=== PATIENT | female | born 1965 | race Hispanic/Latino ===

== ENCOUNTER 2018-11-28 12:52 | Inpatient (IN) | payer BC, OTHER ==
[~2018-11-28] VITALS: Ht 152.4 cm; Wt 113.4 kg
[~2018-11-28 12:52] MED LIST: INSU100I21 SQ; METF-444 PO; SULF1TAB42 PO
[2018-11-28 13:25] LABS: BASOPHILS % (AUTO) 0.3 % (0.0-5.0); EOSINOPHILS % (AUTO) 0.2 % (0.0-8.0); HEMATOCRIT 39.8 % (36-48); LYMPHOCYTES % (AUTO) 7.1 % (21.0-51.0); MEAN CORPUSCULAR HEMOGLOBIN 32.8 pg (27.0-33.0); MEAN CORPUSCULAR HGB CONC 34.7 g/dL (32.0-36.0); MEAN CORPUSCULAR VOLUME 94.7 fL (79-99); MONOCYTES % (AUTO) 7.4 % (3.0-13.0); PLATELET COUNT (AUTO) 62 K/uL (130-400); RED CELL DISTRIBUTION WIDTH 13.9 % (11.0-15.5); WHITE BLOOD COUNT (AUTO) 13.2 K/uL (4.8-10.8)
[2018-11-28 13:26] LABS: CREATININE 1.3 mg/dL (0.5-1.5); POTASSIUM 4.7 mmol/L (3.5-5.1)
[2018-11-28] MEDS ORDERED: SODIUM CHLORIDE 0.9% 1000ML 1,000 ML IV ONE ×3 (13:30→17:19)
[2018-11-28 13:31] LABS: ALBUMIN 2.2 g/dL (3.5-5.0); BILIRUBIN,TOTAL 4.5 mg/dL (0.2-1.0); TOTAL PROTEIN, SERUM 6.6 g/dL (6.0-8.3)
[2018-11-28 13:36] LABS: CREATINE KINASE, TOTAL 80 U/L (21-232); MYOGLOBIN 56 ng/mL (10-92); TROPONIN I < 0.04 ng/mL (0.00-0.06)
[2018-11-28] MEDS ORDERED: ONDANSETRON HCL 4 MG/2 ML VIAL ONE (13:36)
[2018-11-28 14:34] LABS: APPEARANCE,URINE SL CLOUDY (CLEAR); BILIRUBIN,URINE MODERATE (NEGATIVE); GLUCOSE, URINE (UA) NEGATIVE (NEGATIVE); KETONES,URINE 5 mg/dL (NEGATIVE); LEUKOCYTE ESTERASE ,URINE TRACE (NEGATIVE); NITRATE,URINE POSITIVE (NEGATIVE); OCCULT BLOOD,URINE TRACE-LYSED (NEGATIVE); PH,URINE 5.5 (5.0-8.0); PROTEIN,URINE 30 mg/dL (NEGATIVE)
[2018-11-28 14:36] LABS: COLOR,URINE ORANGE (YELLOW)
[2018-11-28 14:38] LABS: HCG,QUAL RESULT NEGATIVE (NEGATIVE)
[2018-11-28 14:46] LABS: BACTERIA,URINE Many /HPF (None Seen); RBC,URINE 0-1 /HPF (0-1)
[2018-11-28 14:49] LABS: AMPHET/METH SCREEN,URINE NEGATIVE (NEGATIVE); BARBITURATE SCREEN, URINE NEGATIVE (NEGATIVE); BENZODIAZEPINES SCREEN,URINE NEGATIVE (NEGATIVE); CANNABINOID SCREEN,URINE NEGATIVE (NEGATIVE); COCAINE SCREEN,URINE NEGATIVE (NEGATIVE); OPIATE SCREEN,URINE NEGATIVE (NEGATIVE); PHENCYCLIDINE SCREEN,URINE NEGATIVE (NEGATIVE)
[2018-11-28 15:10] LABS: INR 1.18 (0.85-1.15); PARTIAL THROMBOPLASTIN TIME 29.1 SEC (26.3-35.5); PROTHROMBIN TIME 12.4 SEC (9.6-11.6)
[2018-11-28] MEDS ORDERED: LEVOFLOXACIN 750 MG/D5W 150 ML 150 ML ONE (15:13)
[2018-11-28] MEDS ORDERED: SODIUM CHLORIDE 0.9% 1000ML 1,000 ML IV SCH (16:27)
[2018-11-28] MEDS ORDERED: ONDANSETRON HCL 4 MG/2 ML VIAL IV PRN (16:30)
[2018-11-28] MEDS ORDERED: HYDRALAZINE HCL 20 MG/ML VIAL IV PRN (16:30)
[2018-11-28] MEDS ORDERED: MORPHINE SULFATE 4 MG/1ML SYG IV PRN (16:30)
[2018-11-28] MEDS ORDERED: ACETAMINOPHEN 325 MG TAB PO PRN ×2 (16:30)
[2018-11-28] MEDS: LACTULOSE 20 GM/30 ML UDCUP PO SCH ×2 (16:30→20:40)
[2018-11-28] MEDS ORDERED: MORPHINE SULFATE 2 MG/ML 1ML SYG IV PRN (16:30)
[2018-11-28] MEDS ORDERED: LACTULOSE 20 GM/30 ML UDCUP ONE ×2 (16:45→16:47)
[2018-11-28] MEDS ORDERED: METOPROLOL TARTRATE 25 MG TAB ONE (17:10)
[2018-11-28 18:10] VITALS: BP 129/86
[2018-11-28 20:02] VITALS: BP 141/79
--- NOTE | 2018-11-28 20:29 | NUR ---
REWIND OPERATOR AJ, REWIND OPERATOR SENIOR JAVA PROGRAMMER ANALYST FOR HOSPITALIST, ON THE FLOOR. REFERRED PT'S IVF RATE. NEW ORDERS GIVEN, PLEASE REFER TO CPOE. WILL ADJUST IVF RATE FROM 150 TO 75 CC/HR.
[2018-11-28] MEDS: FAMOTIDINE/PF 20 MG/2 ML VIAL IV SCH (20:40)
[2018-11-28] MEDS: ZOSYN 3.375GM+NS 50ML 50 ML IV SCH (20:40)
[2018-11-28] MEDS: RIFAXIMIN 550 MG TABLET PO SCH (20:40)
[2018-11-28] MEDS: METOPROLOL TARTRATE 25 MG TAB PO SCH (20:40)
--- NOTE | 2018-11-28 20:40 | NUR ---
MEDS SHIFT ASSESSMENT DONE, PLEASE REFER TO CHART. PT VERY LETHARGIC BUT ABLE TO AWAKEN ENOUGH TO TAKE MEDS. VERY UNCOOPERATIVE AT THIS TIME, VERY CONFUSED WELL. PT IS TRYING TO PULL ON HER LINES. DUE MEDS ADMINISTERED, TOLERATED WELL. PCP IN AND MITTENS PLACED ON BOTH HANDS. PT'S DAUGHTER IS STAYING THE NIGHT TO WATCH PT. WILL MONITOR CLOSELY. Addendum: 11/29/18 at 0113 by JESSICA HERNANDEZ RN RN Amended: Links added.
[2018-11-28] MEDS: INSULIN GLARGINE 100 UNITS/ML 10 ML VIAL SQ SCH (20:55)
[2018-11-28] MEDS ORDERED: INSULIN HUMULIN R 100 UNIT/ML 3ML SQ SCH (21:00)
--- NOTE | 2018-11-28 21:50 | NUR ---
LAB LACTIC ACID RESULTS=1.7. AUBREE, CLEANING SPECIALIST TRAFFIC ANALYST FOR THE NIGHT, MADE AWARE. ORDER TO D/C IVF RECEIVED. WILL D/C IVF AT THIS TIME.
--- NOTE | 2018-11-28 23:34 | NUR ---
CONSULT DR DELGADO IN TO SEE PT BUT PT IS BEING CHANGED AT THIS TIME. INFORMED MD OF PT'S AMS AND MD ALREADY AWARE OF LABS AND IMAGING RESULTS. MD STATED HE WILL SEE PT IN AM AND NEW ORDERS GIVEN, PLEASE REFER TO CPOE.
[2018-11-28 23:46] VITALS: BP 127/45
--- NOTE | 2018-11-29 02:10 | NUR ---
ROUNDS PT IS MORE COHERENT WHEN SPOKEN TO. MORE CALM AT THIS TIME. KEPT COMFORTABLE IN BED. WILL MONITOR CLOSELY WITH FAMILY AT BEDSIDE.
[2018-11-29] MEDS: ZOSYN 3.375GM+NS 50ML 50 ML IV SCH ×3 (03:57→22:00)
[2018-11-29 04:27] VITALS: BP 139/75
[2018-11-29 04:52] LABS: BASOPHILS % (AUTO) 0.5 % (0.0-5.0); EOSINOPHILS % (AUTO) 0.3 % (0.0-8.0); HEMATOCRIT 33.3 % (36-48); LYMPHOCYTES % (AUTO) 7.7 % (21.0-51.0); MEAN CORPUSCULAR HEMOGLOBIN 33.3 pg (27.0-33.0); MEAN CORPUSCULAR HGB CONC 35.1 g/dL (32.0-36.0); MEAN CORPUSCULAR VOLUME 94.8 fL (79-99); NEUTROPHILS % (AUTO) 81.5 % (40.0-77.0); PLATELET COUNT (AUTO) 38 K/uL (130-400); RED BLOOD CELL COUNT(AUTO) 3.51 MIL/uL (4.00-5.50); WHITE BLOOD COUNT (AUTO) 11.3 K/uL (4.8-10.8)
[2018-11-29 05:02] LABS: INR 1.32 (0.85-1.15); PARTIAL THROMBOPLASTIN TIME 32.2 SEC (26.3-35.5); PROTHROMBIN TIME 13.8 SEC (9.6-11.6)
[2018-11-29 05:07] LABS: ALBUMIN 1.9 g/dL (3.5-5.0); BILIRUBIN,TOTAL 5.4 mg/dL (0.2-1.0); CREATININE 1.8 mg/dL (0.5-1.5); POTASSIUM 4.2 mmol/L (3.5-5.1); TOTAL PROTEIN, SERUM 5.9 g/dL (6.0-8.3)
[2018-11-29 05:08] LABS: % IRON SATURATION 95.5 % (22-44)
[2018-11-29] MEDS: INSULIN HUMULIN R 100 UNIT/ML 3ML SQ SCH ×3 (06:25→18:52)
--- NOTE | 2018-11-29 06:25 | NUR ---
MEDS AWAKENED PT, AND AWAKENS WITH JUST VERBAL COMMAND. PT IS COHERENT WHEN TALKED TO AT THIS TIME. DUE INSULIN DOSE ADMINISTERED. KEPT NPO FOR NOW. KEPT COMFORTABLE IN BED. FAMILY VERBALIZES THAT SOMEBODY WILL STAY WITH PT TODAY. FOR MORE CARE AND MANAGEMENT.
[2018-11-29 08:00] VITALS: BP 148/86
[2018-11-29] MEDS: RIFAXIMIN 550 MG TABLET PO SCH ×2 (09:00→22:00)
[2018-11-29] MEDS: LACTULOSE 20 GM/30 ML UDCUP PO SCH ×3 (09:00→22:01)
[2018-11-29] MEDS: METOPROLOL TARTRATE 25 MG TAB PO SCH ×2 (09:00→22:01)
[2018-11-29] MEDS: FAMOTIDINE/PF 20 MG/2 ML VIAL IV SCH ×2 (09:15→22:00)
[2018-11-29 12:20] VITALS: BP 121/66
--- NOTE | 2018-11-29 14:44 | NUR ---
REPORT BACK FROM JOELLE PENNINGTON, DR. CARRASCO PAGED
[2018-11-29 16:00] VITALS: BP 144/79
--- NOTE | 2018-11-29 16:28 | NUR ---
PAGED DR. CARRASCO SPOKE WITH LELAND
--- NOTE | 2018-11-29 17:57 | NUR ---
Diet Education HAILY provided Cirrhosis and Nutrition Diet Education to Pt and Family via Polish Translation. HAILY reviewed reference materials with Pt and daughter. Pt and with questions. RD answered all questions. Pt and family verbalized understanding. HAILY encouraged Pt to notify as questions or concerns arise. Addendum: 11/29/18 at [address] Amended: Links added.
--- NOTE | 2018-11-29 19:07 | NUR ---
VELEZ D/C AT [address] DEFLATED PRIOR W 10 CC OF WATER
[2018-11-29 19:41] VITALS: BP 144/71
--- NOTE | 2018-11-29 20:45 | NUR ---
Paged Dr. Merchant as patient and family upset patient continues NPO and state surgeon has not seen patient since admission. Pending call back.
[2018-11-29] MEDS: INSULIN GLARGINE 100 UNITS/ML 10 ML VIAL SQ SCH (21:58)
[2018-11-30] VITALS (7 sets, daily range): BP systolic 137–163; BP diastolic 67–82
[2018-11-30] MEDS: INSULIN HUMULIN R 100 UNIT/ML 3ML SQ SCH ×4 (00:54→20:15)
[2018-11-30 04:15] LABS: BASOPHILS % (AUTO) 0.5 % (0.0-5.0); EOSINOPHILS % (AUTO) 0.4 % (0.0-8.0); HEMATOCRIT 32.4 % (36-48); LYMPHOCYTES % (AUTO) 7.3 % (21.0-51.0); MEAN CORPUSCULAR HGB CONC 35.4 g/dL (32.0-36.0); MONOCYTES % (AUTO) 11.7 % (3.0-13.0); NEUTROPHILS % (AUTO) 80.1 % (40.0-77.0); NUCLEATED RED BLOOD CELLS 0.1 % (0.0-0.19); PLATELET COUNT (AUTO) 22 K/uL (130-400); RED BLOOD CELL COUNT(AUTO) 3.38 MIL/uL (4.00-5.50); RED CELL DISTRIBUTION WIDTH 14.4 % (11.0-15.5); WHITE BLOOD COUNT (AUTO) 10.8 K/uL (4.8-10.8)
[2018-11-30 04:25] LABS: CREATININE 2.6 mg/dL (0.5-1.5); POTASSIUM 4.4 mmol/L (3.5-5.1)
[2018-11-30] MEDS: ZOSYN 3.375GM+NS 50ML 50 ML IV SCH (05:42)
--- NOTE | 2018-11-30 08:00 | NUR ---
PATIENT/FAMILY COMPLAINT PATIENTS DAUGHTER, NICKY, VERBALIZED THAT SHE WAS UPSET BECAUSE "NO DOCTOR HAS COME TALK TO MY MOM ABOUT WHAT IS GOING ON. DR. CALL TALKED TO US IN THE ER, BUT NO OTHER DOCTOR HAS SEEN MY MOM [PATIENT] SINCE THEN." PATIENT ALSO STATES "I JUST WANT TO KNOW WHEN I CAN DRINK, I AM VERY THIRSTY." I INFORMED Dinora RENTERIA NP FOR HOSPITALIST OF PATIENT/FAMILY COMPLAINTS. Dinora RENTERIA NP FOR HOSPITALIST VISITED WITH PATIENT AND FAMILY AND EXPLAINED PLAN OF CARE. I ALSO INFORMED Dinora RENTERIA NP THAT PATIENT HAS BEEN "NPO EXCEPT MEDS" AND NO IV FLUIDS. Dinora RENTERIA NP REPLIED SHE WOULD PLACE ORDERS TO START PATIENT ON DIET.
[2018-11-30 08:12] LABS: HEPATITIS A ANTIBODY IGM Negative (Negative); HEPATITIS B CORE IGM Negative (Negative); HEPATITIS Bs ANTIGEN SCREEN P Negative (Negative)
--- NOTE | 2018-11-30 08:15 | NUR ---
Dinora RENTERIA NP INFORMED Dinora RENTERIA NP FOR HOSPITALIST OF PATIENTS BUN/CREATING LEVELS TRENDING UPWARDS. Dinora RENTERIA NP REPLIED SHE WOULD PLACE ORDERS TO CONSULT WITH NEPHROLOGY. Dinora RENTERIA NP ALSO AWARE THAT PLATELET LEVEL 22.
--- NOTE | 2018-11-30 09:15 | NUR ---
DR. LEONARDO DESHPANDE MD REGARDING CALLBACK. DID CALL ME BACK AND STATED THAT SHE IS GOING OUT OF TOWN TODAY AND DR. MOODY WILL BE COVERING FOR HER PATIENTS.
--- NOTE | 2018-11-30 09:20 | NUR ---
DR. MOODY PAGED DR. MOODY'S OFFICE REGARDING CONSULT. AWAITING CALLBACK.
[2018-11-30] MEDS: METOPROLOL TARTRATE 25 MG TAB PO SCH ×2 (10:43→19:54)
[2018-11-30] MEDS: RIFAXIMIN 550 MG TABLET PO SCH ×2 (10:43→19:54)
[2018-11-30] MEDS: LACTULOSE 20 GM/30 ML UDCUP PO SCH ×3 (10:46→21:50)
[2018-11-30] MEDS: FAMOTIDINE/PF 20 MG/2 ML VIAL IV SCH ×2 (10:48→19:54)
--- NOTE | 2018-11-30 11:00 | NUR ---
INITIAL Met w pt and friend at bedside- pt sleepy /weak but able to answer all CM questions, Pt lives w adult children, is employed as a provider, is indp, no dme; Daughter Fabi will proivde transport home . New diagnosis of liver failure/cirrhosis. Jose Angel Mejia is her PMD just saw 2 wks ago. Asked if she will told she can no long drink any alcohol.. responded was told. DCP is home, CM to follow. Addendum: 12/03/18 at 0858 by TAZ KRISHNAMURTHY RN CM Amended: Links added.
[2018-11-30] MEDS ORDERED: INSULIN HUMULIN R 100 UNIT/ML 3ML SQ SCH (11:30)
[2018-11-30] MEDS: LEVOFLOXACIN 250 MG/D5W 50ML 50 ML IV SCH (13:05)
[2018-11-30] MEDS: SODIUM CHLORIDE 0.9% 1000ML 1,000 ML IV SCH (13:08)
--- NOTE | 2018-11-30 15:30 | NUR ---
DR. CARRASCO MD HERE TO SEE PATIENT. STATES THAT NO SURGICAL INTERVENTION INDICATED AT THIS TIME. DR. CARRASCO SPOKE TO PATIENT AND DAUGHTER AND EXPLAINED HIDA SCAN RESULTS WERE NO NORMAL AND NO NEED FOR SURGICAL INTERVENTION. MD ALSO GAVE ORDER TO ADVANCE PATIENTS DIET TOLERATED.
--- NOTE | 2018-11-30 17:00 | NUR ---
ELEVATED BLOOD GLUCOSE INFORMED CRYSTAL RICO THAT PATIENT BLOOD SUGAR HAVE BEEN CONSECUTIVELY ABOVE 350 FOR LAST 2 BLOOD SUGAR CHECKS. PATIENT PLACED ON SS2.
[2018-11-30] MEDS ORDERED: INSULIN LISPRO 100 UNIT/ML 3ML SQ SCH (17:15)
[2018-11-30] MEDS: INSULIN GLARGINE 100 UNITS/ML 10 ML VIAL SQ SCH (20:03)
[2018-12-01 04:00] VITALS: BP 115/59
[2018-12-01 04:31] LABS: BASOPHILS % (AUTO) 0.4 % (0.0-5.0); EOSINOPHILS % (AUTO) 1.4 % (0.0-8.0); HEMATOCRIT 26.7 % (36-48); LYMPHOCYTES % (AUTO) 7.9 % (21.0-51.0); MEAN CORPUSCULAR HEMOGLOBIN 33.8 pg (27.0-33.0); MEAN CORPUSCULAR HGB CONC 35.6 g/dL (32.0-36.0); MEAN CORPUSCULAR VOLUME 94.8 fL (79-99); MONOCYTES % (AUTO) 13.3 % (3.0-13.0); NUCLEATED RED BLOOD CELLS 0.1 % (0.0-0.19); RED BLOOD CELL COUNT(AUTO) 2.81 MIL/uL (4.00-5.50); RED CELL DISTRIBUTION WIDTH 14.4 % (11.0-15.5); WHITE BLOOD COUNT (AUTO) 10.1 K/uL (4.8-10.8)
[2018-12-01 04:42] LABS: ALBUMIN 1.9 g/dL (3.5-5.0); BILIRUBIN,TOTAL 5.8 mg/dL (0.2-1.0); POTASSIUM 3.8 mmol/L (3.5-5.1); TOTAL PROTEIN, SERUM 6.2 g/dL (6.0-8.3)
[2018-12-01 05:05] LABS: PLATELET COUNT (AUTO) 24 K/uL (130-400)
[2018-12-01] MEDS: SODIUM CHLORIDE 0.9% 1000ML 1,000 ML IV SCH (06:44)
[2018-12-01] MEDS: INSULIN HUMULIN R 100 UNIT/ML 3ML SQ SCH ×4 (07:17→21:31)
[2018-12-01 08:00] VITALS: BP 124/66
[2018-12-01] MEDS: FAMOTIDINE/PF 20 MG/2 ML VIAL IV SCH ×2 (08:28→21:19)
[2018-12-01] MEDS: METOPROLOL TARTRATE 25 MG TAB PO SCH ×2 (08:29→21:19)
[2018-12-01] MEDS: LACTULOSE 20 GM/30 ML UDCUP PO SCH ×3 (08:29→21:19)
[2018-12-01] MEDS: RIFAXIMIN 550 MG TABLET PO SCH ×2 (08:29→21:19)
[2018-12-01 11:16] VITALS: BP 131/73
[2018-12-01] MEDS: LEVOFLOXACIN 250 MG/D5W 50ML 50 ML IV SCH (11:16)
[2018-12-01 16:12] VITALS: BP 136/68
[2018-12-01 19:26] VITALS: BP 127/67
[2018-12-01] MEDS: INSULIN GLARGINE 100 UNITS/ML 10 ML VIAL SQ SCH (21:36)
[2018-12-01 23:35] VITALS: BP 114/56
[2018-12-02 04:00] VITALS: BP 103/59
[2018-12-02 05:05] LABS: BASOPHILS % (AUTO) 0.5 % (0.0-5.0); EOSINOPHILS % (AUTO) 2.2 % (0.0-8.0); HEMATOCRIT 22.2 % (36-48); LYMPHOCYTES % (AUTO) 15.4 % (21.0-51.0); MEAN CORPUSCULAR HEMOGLOBIN 34.2 pg (27.0-33.0); MEAN CORPUSCULAR HGB CONC 35.7 g/dL (32.0-36.0); MEAN CORPUSCULAR VOLUME 95.8 fL (79-99); MONOCYTES % (AUTO) 11.7 % (3.0-13.0); NEUTROPHILS % (AUTO) 70.2 % (40.0-77.0); NUCLEATED RED BLOOD CELLS 0.3 % (0.0-0.19); PLATELET COUNT (AUTO) 12 K/uL (130-400); RED BLOOD CELL COUNT(AUTO) 2.32 MIL/uL (4.00-5.50); RED CELL DISTRIBUTION WIDTH 14.8 % (11.0-15.5); WHITE BLOOD COUNT (AUTO) 8.1 K/uL (4.8-10.8)
[2018-12-02 05:15] LABS: ALBUMIN 1.7 g/dL (3.5-5.0); PHOSPHORUS 5.2 mg/dL (2.5-4.9); POTASSIUM 3.5 mmol/L (3.5-5.1)
[2018-12-02] MEDS: INSULIN HUMULIN R 100 UNIT/ML 3ML SQ SCH ×4 (06:31→21:00)
[2018-12-02 08:00] VITALS: BP 113/65
[2018-12-02] MEDS: LACTULOSE 20 GM/30 ML UDCUP PO SCH ×3 (08:49→20:59)
[2018-12-02] MEDS: RIFAXIMIN 550 MG TABLET PO SCH ×2 (08:49→20:58)
[2018-12-02] MEDS: FAMOTIDINE/PF 20 MG/2 ML VIAL IV SCH ×2 (08:49→21:00)
[2018-12-02] MEDS: METOPROLOL TARTRATE 25 MG TAB PO SCH ×2 (08:49→20:58)
[2018-12-02] MEDS: SODIUM CHLORIDE 0.9% 1000ML 1,000 ML IV SCH ×2 (08:50→09:45)
[2018-12-02] MEDS: LEVOFLOXACIN 250 MG/D5W 50ML 50 ML IV SCH (09:59)
[2018-12-02 11:11] VITALS: BP 118/60
[2018-12-02 16:00] VITALS: BP 120/63
[2018-12-02 19:35] VITALS: BP 138/65
[2018-12-02] MEDS: INSULIN GLARGINE 100 UNITS/ML 10 ML VIAL SQ SCH (21:05)
[2018-12-02 23:54] VITALS: BP 105/49
[2018-12-03 04:00] VITALS: BP 112/66
[2018-12-03 05:44] LABS: BASOPHILS % (AUTO) 0.5 % (0.0-5.0); EOSINOPHILS % (AUTO) 1.9 % (0.0-8.0); LYMPHOCYTES % (AUTO) 17.3 % (21.0-51.0); MEAN CORPUSCULAR HEMOGLOBIN 34.3 pg (27.0-33.0); MEAN CORPUSCULAR HGB CONC 35.5 g/dL (32.0-36.0); MEAN CORPUSCULAR VOLUME 96.5 fL (79-99); MONOCYTES % (AUTO) 10.4 % (3.0-13.0); NEUTROPHILS % (AUTO) 69.9 % (40.0-77.0); NUCLEATED RED BLOOD CELLS 0.1 % (0.0-0.19); PLATELET COUNT (AUTO) 13 K/uL (130-400); RED BLOOD CELL COUNT(AUTO) 2.09 MIL/uL (4.00-5.50); WHITE BLOOD COUNT (AUTO) 7.6 K/uL (4.8-10.8)
[2018-12-03 05:49] LABS: HEMATOCRIT 20.1 % (36-48)
[2018-12-03 06:06] LABS: POTASSIUM 3.8 mmol/L (3.5-5.1)
[2018-12-03] MEDS: INSULIN HUMULIN R 100 UNIT/ML 3ML SQ SCH ×4 (06:50→21:33)
[2018-12-03 08:14] VITALS: BP 122/59
[2018-12-03] MEDS: LACTULOSE 20 GM/30 ML UDCUP PO SCH ×3 (09:42→21:37)
[2018-12-03] MEDS: METOPROLOL TARTRATE 25 MG TAB PO SCH ×2 (09:42→21:37)
[2018-12-03] MEDS: RIFAXIMIN 550 MG TABLET PO SCH (09:42)
[2018-12-03] MEDS: FAMOTIDINE/PF 20 MG/2 ML VIAL IV SCH ×2 (09:42→21:37)
[2018-12-03 11:23] VITALS: BP 101/63
--- NOTE | 2018-12-03 13:34 | NUR ---
CASE DISCUSSED INCREASED RENAL FIALURE, NEW LIVER CIRRHOSIS NOW PLTS VERY LOW. POSS HEMATOLIGST CONSULT Addendum: 12/03/18 at 1337 by TAZ KRISHNAMURTHY RN CM Amended: Links added.
--- NOTE | 2018-12-03 14:29 | NUR ---
DEXTER STATED PT, TO TAKE A SPONGE BATH SINCE PTL IS LOW- PT REFUSING SPONGE BATH
--- NOTE | 2018-12-03 15:59 | NUR ---
CALL TO DR. MOODY'S OFFICE T/C PLACED TO DR. MOODY'S OFFICE, GIVEN ANOTHER TEL. NUMBER, CALL MADE TO FELIPA WANT TO KNOW IF DR. MOODY WAS GOING TO MAKE ROUNDS, SAID DR. MOODY WILL ROUND TODAY.
[2018-12-03 16:00] VITALS: BP 126/68
--- NOTE | 2018-12-03 16:10 | NUR ---
EVELYN , WENT AND SPOKE WITH FAMILY MEMBERS, SINCE THEY ARE UPSET STATING " YOU ALL HAVENT DONE SHIT , ABOUT MY MOM'S PLATELET COUNT" EDUCATION WAS GIVEN ON LIVER CIRRHOSIS, AUTOMOTIVE MANAGER, NOTIFIED, AND JIGAR DIRECTOR AWARE DAUGHTER WANTED TO SPEAK TO SOMEONE THAT IS NOT "A DR"
--- NOTE | 2018-12-03 18:39 | NUR ---
DR. MARIO DESHPANDE, STATED WILL BE HERE IN 30 MIN TO SEE PT
[2018-12-03] MEDS: SODIUM CHLORIDE 0.9% 1000ML 1,000 ML IV SCH (18:45)
[2018-12-03 19:00] VITALS: BP 114/53
--- NOTE | 2018-12-03 19:45 | NUR ---
DR. CORRALES ROUNDED: Seen and examined pt with orders carried out. Pt. and daughter verbalized understanding to MD's order and explanation.
[2018-12-03] MEDS: INSULIN GLARGINE 100 UNITS/ML 10 ML VIAL SQ SCH (21:31)
[2018-12-03] MEDS: FERROUS SULFATE 325 MG TABLET.DR PO SCH (21:37)
--- NOTE | 2018-12-03 21:46 | NUR ---
DR. Turcios rounded: Seen and examined pt. Told the typewriter mechanic to call him anytime aretha AM (12/04/18 )to report the blood chem results.
[2018-12-03 23:30] VITALS: BP 136/66
[2018-12-04 02:40] VITALS: BP 110/55
[2018-12-04 04:35] LABS: BASOPHILS % (AUTO) 0.6 % (0.0-5.0); EOSINOPHILS % (AUTO) 2.1 % (0.0-8.0); LYMPHOCYTES % (AUTO) 14.6 % (21.0-51.0); MEAN CORPUSCULAR HEMOGLOBIN 34.7 pg (27.0-33.0); MEAN CORPUSCULAR HGB CONC 35.4 g/dL (32.0-36.0); MONOCYTES % (AUTO) 10.7 % (3.0-13.0); NUCLEATED RED BLOOD CELLS 0.1 % (0.0-0.19); PLATELET COUNT (AUTO) 16 K/uL (130-400); RED BLOOD CELL COUNT(AUTO) 2.04 MIL/uL (4.00-5.50); RED CELL DISTRIBUTION WIDTH 14.8 % (11.0-15.5); WHITE BLOOD COUNT (AUTO) 7.1 K/uL (4.8-10.8)
[2018-12-04 05:01] LABS: ALBUMIN 1.7 g/dL (3.5-5.0); CREATININE 5.2 mg/dL (0.5-1.5); PHOSPHORUS 6.8 mg/dL (2.5-4.9); POTASSIUM 3.7 mmol/L (3.5-5.1)
[2018-12-04] MEDS: INSULIN HUMULIN R 100 UNIT/ML 3ML SQ SCH ×4 (06:20→22:48)
--- NOTE | 2018-12-04 06:32 | NUR ---
Report CBC to DR. Banda Will come to see the pt. today as replied.
[2018-12-04 07:30] VITALS: BP 115/63
--- NOTE | 2018-12-04 09:43 | NUR ---
DR. HEIDY DESHPANDE, SPOKE WITH ZAC- REPORTED CHEMISTRY LEVELS FROM YESTERDAY AND TODAY FOR COMPARISON GAVE MY CALL BACK NUMBER
[2018-12-04] MEDS: FAMOTIDINE/PF 20 MG/2 ML VIAL IV SCH ×2 (09:49→22:50)
[2018-12-04] MEDS: LACTULOSE 20 GM/30 ML UDCUP PO SCH ×3 (09:49→22:50)
[2018-12-04] MEDS: FOLIC ACID 1 MG TABLET PO SCH (09:49)
[2018-12-04] MEDS: CYANOCOBALAMIN (VITAMIN B-12) 1,000 MCG TABLET PO SCH (09:50)
[2018-12-04] MEDS: METOPROLOL TARTRATE 25 MG TAB PO SCH ×2 (09:50→22:50)
[2018-12-04] MEDS: FERROUS SULFATE 325 MG TABLET.DR PO SCH ×3 (09:50→22:50)
[2018-12-04 11:00] VITALS: BP 105/41
--- NOTE | 2018-12-04 12:37 | NUR ---
DR. MOODY PAGED AGAIN NO CALL BACK YET ZAC, SPOKE W HEAD NURSE STATED WILL PAGED DR. MOODY FOR ORDERS AND PLAN OF CARE
[2018-12-04] MEDS: SODIUM CHLORIDE 0.9% 1000ML 1,000 ML IV SCH (14:45)
--- NOTE | 2018-12-04 15:18 | NUR ---
RD NOTIFICATION RECEIVED Pt with Severe Protein Calorie Malnutrition. Albumin levels 1.7. However Pt with altered nutrition related lab values as related to Renal dysfunction as evidenced by BUN 107, Cr 5.2, GFR 9. Protein supplementation contraindicated d/t renal dysfunction. Pt with fair to good PO (75-100%) as per EMR. D/t Pt Non-Dialysis Recommend 0.6-0.8 gm Protein/day (37-49 gms Pro per day). Recommend Nepro shake QD for increased nutritional intake. RD to follow up. Please notify RD as additional nutrition concerns arise. Thank you.
[2018-12-04 16:00] VITALS: BP 128/61
[2018-12-04] MEDS: MEROPENEM 500 MG VIAL IVP SCH (18:03)
--- NOTE | 2018-12-04 20:40 | NUR ---
Dr. Turcios rounded Visited and talked with the patient and daughter. No new orders. To strictly monitor intake and output.
[2018-12-04 21:32] VITALS: BP 122/64
[2018-12-04] MEDS: INSULIN GLARGINE 100 UNITS/ML 10 ML VIAL SQ SCH (22:48)
[2018-12-04] MEDS: MIDODRINE HCL 5 MG TABLET PO SCH (22:51)
[2018-12-04] MEDS: OCTREOTIDE ACETATE 100 MCG/ML AMP SQ SCH (22:52)
[2018-12-04 23:46] VITALS: BP 131/73
[2018-12-05 03:59] VITALS: BP 116/61
[2018-12-05 05:01] LABS: APPEARANCE,URINE Cloudy (CLEAR); BILIRUBIN,URINE Negative (NEGATIVE); COLOR,URINE Dark Yellow (YELLOW); GLUCOSE, URINE (UA) Negative (NEGATIVE); KETONES,URINE Trace mg/dL (NEGATIVE); LEUKOCYTE ESTERASE ,URINE Moderate (NEGATIVE); NITRATE,URINE Negative (NEGATIVE); OCCULT BLOOD,URINE Trace (NEGATIVE); PROTEIN,URINE Trace mg/dL (NEGATIVE)
[2018-12-05 05:17] LABS: BACTERIA,URINE Rare /HPF (None Seen); RBC,URINE 0-1 /HPF (0-1); SQUAMOUS EPITHELIAL CELL,UR Moderate /HPF (0-2)
[2018-12-05 05:18] LABS: HYALINE CASTS, URINE 0-1 /LPF (0-1 /LPF)
[2018-12-05 05:23] LABS: BASOPHILS % (AUTO) 0.4 % (0.0-5.0); EOSINOPHILS % (AUTO) 2.4 % (0.0-8.0); HEMATOCRIT 21.5 % (36-48); LYMPHOCYTES % (AUTO) 11.6 % (21.0-51.0); MEAN CORPUSCULAR VOLUME 99.8 fL (79-99); MONOCYTES % (AUTO) 9.2 % (3.0-13.0); NEUTROPHILS % (AUTO) 76.4 % (40.0-77.0); NUCLEATED RED BLOOD CELLS 0.1 % (0.0-0.19); PLATELET COUNT (AUTO) 24 K/uL (130-400); RED BLOOD CELL COUNT(AUTO) 2.16 MIL/uL (4.00-5.50); RED CELL DISTRIBUTION WIDTH 15.4 % (11.0-15.5); WHITE BLOOD COUNT (AUTO) 7.7 K/uL (4.8-10.8)
[2018-12-05 05:25] LABS: ALBUMIN 1.8 g/dL (3.5-5.0); CREATININE 4.7 mg/dL (0.5-1.5); CRP QUANTITATIVE 22.1 mg/L (0.00-9.0); POTASSIUM 3.9 mmol/L (3.5-5.1)
[2018-12-05 06:18] LABS: ERYTHROCYTE SEDIMENTATION RATE 30 MM/HR (0-30)
[2018-12-05] MEDS: INSULIN HUMULIN R 100 UNIT/ML 3ML SQ SCH ×5 (06:23→21:46)
[2018-12-05 08:09] VITALS: BP 105/65
[2018-12-05 09:11] LABS: CREATININE,URINE RANDOM 246 mg/dL (30-135); SODIUM,URINE RANDOM < 15 mmol/l (40-220)
[2018-12-05] MEDS: FERROUS SULFATE 325 MG TABLET.DR PO SCH ×3 (09:52→21:41)
[2018-12-05] MEDS: CYANOCOBALAMIN (VITAMIN B-12) 1,000 MCG TABLET PO SCH (09:52)
[2018-12-05] MEDS: FOLIC ACID 1 MG TABLET PO SCH (09:52)
[2018-12-05] MEDS: ASCORBIC ACID 500 MG TAB PO SCH (09:52)
[2018-12-05] MEDS: MIDODRINE HCL 5 MG TABLET PO SCH ×3 (09:52→21:41)
[2018-12-05] MEDS: FAMOTIDINE/PF 20 MG/2 ML VIAL IV SCH ×2 (09:52→21:40)
[2018-12-05] MEDS: EPOETIN ALFA 10,000 UNIT/ML VIAL SQ SCH ×2 (09:53→19:57)
[2018-12-05] MEDS: LACTULOSE 20 GM/30 ML UDCUP PO SCH ×3 (09:53→21:40)
[2018-12-05] MEDS: METOPROLOL TARTRATE 25 MG TAB PO SCH (09:53)
[2018-12-05] MEDS: ZINC SULFATE 220 CAPSULE PO SCH (09:53)
[2018-12-05] MEDS: OCTREOTIDE ACETATE 100 MCG/ML AMP SQ SCH ×3 (09:54→21:40)
[2018-12-05 11:49] VITALS: BP 123/66
[2018-12-05] MEDS: MEROPENEM 500 MG VIAL IVP SCH (14:28)
[2018-12-05 16:35] VITALS: BP 122/64
[2018-12-05] MEDS: SODIUM CHLORIDE 0.9% 1000ML 1,000 ML IV SCH (17:00)
[2018-12-05] MEDS ORDERED: SODIUM CHLORIDE 0.9% 250 ML IV ONE (17:04)
--- NOTE | 2018-12-05 18:44 | NUR ---
CHART REVIEWED, VISIT W PATIENT, UP TO RESTROOM, WILL TRY AGAIN. ASKED NESTOR RE MARIAA OR CASEY, PT IS INDEPENDENT & AMBULATORY Addendum: 12/05/18 at 1846 by TAZ KRISHNAMURTHY RN CM Amended: Links added.
[2018-12-05 20:00] VITALS: BP 121/64
[2018-12-05] MEDS: CALCIUM ACETATE 667 MG CAPSULE PO SCH (21:45)
[2018-12-05] MEDS: INSULIN GLARGINE 100 UNITS/ML 10 ML VIAL SQ SCH (21:47)
[2018-12-05 23:32] VITALS: BP 108/54
[2018-12-06] MEDS: SODIUM CHLORIDE 0.9% 1000ML 1,000 ML IV SCH ×2 (01:20→04:27)
[2018-12-06 03:42] VITALS: BP 103/56
[2018-12-06 05:18] LABS: BASOPHILS % (AUTO) 0.5 % (0.0-5.0); EOSINOPHILS % (AUTO) 2.3 % (0.0-8.0); HEMATOCRIT 23.7 % (36-48); LYMPHOCYTES % (AUTO) 9.4 % (21.0-51.0); MEAN CORPUSCULAR HEMOGLOBIN 34.4 pg (27.0-33.0); MEAN CORPUSCULAR HGB CONC 34.7 g/dL (32.0-36.0); MEAN CORPUSCULAR VOLUME 99.1 fL (79-99); MONOCYTES % (AUTO) 9.5 % (3.0-13.0); NEUTROPHILS % (AUTO) 78.3 % (40.0-77.0); NUCLEATED RED BLOOD CELLS 0.2 % (0.0-0.19); PLATELET COUNT (AUTO) 28 K/uL (130-400); RED BLOOD CELL COUNT(AUTO) 2.39 MIL/uL (4.00-5.50); RED CELL DISTRIBUTION WIDTH 15.8 % (11.0-15.5); WHITE BLOOD COUNT (AUTO) 7.3 K/uL (4.8-10.8)
[2018-12-06 05:27] LABS: INR 1.25 (0.85-1.15); PARTIAL THROMBOPLASTIN TIME 31.5 SEC (26.3-35.5); PROTHROMBIN TIME 13.1 SEC (9.6-11.6)
[2018-12-06 05:29] LABS: ALBUMIN 1.8 g/dL (3.5-5.0); CREATININE 3.6 mg/dL (0.5-1.5); PHOSPHORUS 7.6 mg/dL (2.5-4.9); POTASSIUM 4.2 mmol/L (3.5-5.1)
[2018-12-06] MEDS: INSULIN HUMULIN R 100 UNIT/ML 3ML SQ SCH ×4 (06:33→23:09)
[2018-12-06 08:00] VITALS: BP 131/67
[2018-12-06] MEDS: FAMOTIDINE/PF 20 MG/2 ML VIAL IV SCH ×2 (08:13→22:58)
[2018-12-06] MEDS: MIDODRINE HCL 5 MG TABLET PO SCH ×3 (08:17→21:00)
[2018-12-06] MEDS: LACTULOSE 20 GM/30 ML UDCUP PO SCH ×3 (08:17→22:59)
[2018-12-06] MEDS: ASCORBIC ACID 500 MG TAB PO SCH (08:17)
[2018-12-06] MEDS: CYANOCOBALAMIN (VITAMIN B-12) 1,000 MCG TABLET PO SCH (08:17)
[2018-12-06] MEDS: FOLIC ACID 1 MG TABLET PO SCH (08:17)
[2018-12-06] MEDS: CALCIUM ACETATE 667 MG CAPSULE PO SCH ×3 (08:17→22:58)
[2018-12-06] MEDS: FERROUS SULFATE 325 MG TABLET.DR PO SCH ×3 (08:17→22:58)
[2018-12-06] MEDS: ZINC SULFATE 220 CAPSULE PO SCH (08:17)
[2018-12-06] MEDS: OCTREOTIDE ACETATE 100 MCG/ML AMP SQ SCH ×3 (09:27→22:59)
[2018-12-06 11:41] VITALS: BP 113/71
[2018-12-06] MEDS ORDERED: PROPOFOL 1000 MG/100 ML 100 ML IV ONE (13:23)
[2018-12-06] MEDS: MEROPENEM 500 MG VIAL IVP SCH (15:16)
--- NOTE | 2018-12-06 15:48 | NUR ---
RD Follow up Pt diet held this AM for transfusion. Pt pending EGD as per GI Specialist recommendation. Diet advanced to 75gm CCD this afternoon. Pt with previous good appetite (PO intake: 100%). Pt with altered renal labs; Rec to modify diet to Renal Non-Dialysis Diet. Pt LBM 12/05/18. Pt monitored labs: Cl 112, CO2 17, BUN 101, Cr 3.6, GFR 14, Glu 148. Alb 1.8. RD to continue to monitor. Please notify RD as additional nutrition concerns arise. Thank you. Addendum: 12/06/18 at [address] Amended: Links added.
[2018-12-06 16:00] VITALS: BP 121/59
[2018-12-06 19:10] VITALS: BP 126/63
[2018-12-06] MEDS: INSULIN GLARGINE 100 UNITS/ML 10 ML VIAL SQ SCH (23:10)
[2018-12-06 23:34] VITALS: BP 140/75
[2018-12-07] VITALS (20 sets, daily range): BP systolic 90–144; BP diastolic 53–88
[2018-12-07 04:05] LABS: BASOPHILS % (AUTO) 0.5 % (0.0-5.0); EOSINOPHILS % (AUTO) 1.7 % (0.0-8.0); HEMATOCRIT 23.6 % (36-48); LYMPHOCYTES % (AUTO) 7.3 % (21.0-51.0); MEAN CORPUSCULAR HEMOGLOBIN 34.4 pg (27.0-33.0); MEAN CORPUSCULAR HGB CONC 34.6 g/dL (32.0-36.0); MEAN CORPUSCULAR VOLUME 99.3 fL (79-99); MONOCYTES % (AUTO) 9.3 % (3.0-13.0); NEUTROPHILS % (AUTO) 81.2 % (40.0-77.0); PLATELET COUNT (AUTO) 33 K/uL (130-400); RED BLOOD CELL COUNT(AUTO) 2.38 MIL/uL (4.00-5.50); RED CELL DISTRIBUTION WIDTH 18.7 % (11.0-15.5); WHITE BLOOD COUNT (AUTO) 5.9 K/uL (4.8-10.8)
[2018-12-07 04:52] LABS: CREATININE 2.8 mg/dL (0.5-1.5); POTASSIUM 4.1 mmol/L (3.5-5.1)
[2018-12-07] MEDS: SODIUM CHLORIDE 0.9% 1000ML 1,000 ML IV SCH ×2 (07:20→17:20)
[2018-12-07] MEDS: INSULIN HUMULIN R 100 UNIT/ML 3ML SQ SCH ×4 (07:30→21:16)
[2018-12-07] MEDS: LACTULOSE 20 GM/30 ML UDCUP PO SCH ×3 (08:48→21:00)
[2018-12-07] MEDS: FOLIC ACID 1 MG TABLET PO SCH (08:48)
[2018-12-07] MEDS: FERROUS SULFATE 325 MG TABLET.DR PO SCH ×3 (08:48→21:08)
[2018-12-07] MEDS: CYANOCOBALAMIN (VITAMIN B-12) 1,000 MCG TABLET PO SCH (08:49)
[2018-12-07] MEDS: MIDODRINE HCL 5 MG TABLET PO SCH ×3 (08:49→21:08)
[2018-12-07] MEDS: ASCORBIC ACID 500 MG TAB PO SCH (08:49)
[2018-12-07] MEDS: FAMOTIDINE/PF 20 MG/2 ML VIAL IV SCH ×2 (08:49→21:08)
[2018-12-07] MEDS: CALCIUM ACETATE 667 MG CAPSULE PO SCH ×3 (08:49→21:08)
[2018-12-07] MEDS: OCTREOTIDE ACETATE 100 MCG/ML AMP SQ SCH ×3 (08:49→21:08)
[2018-12-07] MEDS: ZINC SULFATE 220 CAPSULE PO SCH (08:49)
[2018-12-07] MEDS ORDERED: PROPOFOL 10 MG/ML 20ML VIAL IV ONE ×2 (14:13)
[2018-12-07] MEDS: MEROPENEM 500 MG VIAL IVP SCH (15:51)
[2018-12-07] MEDS ORDERED: MAGNESIUM CITRATE 296 ML SOLUTION PO ONE (19:00)
[2018-12-07] MEDS ORDERED: LACTULOSE 20 GM/30 ML UDCUP PO SCH (19:00)
[2018-12-07] MEDS ORDERED: PEG 3350/NA SULF,BICARB,CL/KCL 4000 ML SOLN PO ONE (19:00)
[2018-12-07] MEDS: INSULIN GLARGINE 100 UNITS/ML 10 ML VIAL SQ SCH (21:16)
[2018-12-08 03:58] VITALS: BP 112/54
--- NOTE | 2018-12-08 04:45 | NUR ---
GI PREP. TAP WATER ENEMA ADMINISTERED AT THIS TIME. PT TOLERATED WELL. ASSISTED TO THE BATHROOM, AFTER ADMINISTRATION, CLEAR YELLOW WATERY CONTENT OBSERVED WITH SMALL GREEN PARTICLES.
[2018-12-08 05:16] LABS: BASOPHILS % (AUTO) 0.4 % (0.0-5.0); EOSINOPHILS % (AUTO) 0.9 % (0.0-8.0); HEMATOCRIT 23.8 % (36-48); LYMPHOCYTES % (AUTO) 7.8 % (21.0-51.0); MEAN CORPUSCULAR HEMOGLOBIN 34.6 pg (27.0-33.0); MEAN CORPUSCULAR HGB CONC 34.4 g/dL (32.0-36.0); MEAN CORPUSCULAR VOLUME 100.5 fL (79-99); MONOCYTES % (AUTO) 7.7 % (3.0-13.0); NEUTROPHILS % (AUTO) 83.2 % (40.0-77.0); NUCLEATED RED BLOOD CELLS 0.1 % (0.0-0.19); PLATELET COUNT (AUTO) 62 K/uL (130-400); RED BLOOD CELL COUNT(AUTO) 2.37 MIL/uL (4.00-5.50); RED CELL DISTRIBUTION WIDTH 18.8 % (11.0-15.5); WHITE BLOOD COUNT (AUTO) 6.9 K/uL (4.8-10.8)
[2018-12-08 05:30] LABS: POTASSIUM 3.6 mmol/L (3.5-5.1)
[2018-12-08] MEDS: INSULIN HUMULIN R 100 UNIT/ML 3ML SQ SCH ×4 (05:51→22:19)
[2018-12-08 07:30] VITALS: BP 134/74
[2018-12-08] MEDS ORDERED: LACTULOSE 20 GM/30 ML UDCUP ONE (08:55)
[2018-12-08] MEDS: LACTULOSE 20 GM/30 ML UDCUP PO SCH ×3 (08:55→12:45)
[2018-12-08] MEDS: CALCIUM ACETATE 667 MG CAPSULE PO SCH ×3 (09:45→22:17)
[2018-12-08] MEDS: FOLIC ACID 1 MG TABLET PO SCH (09:45)
[2018-12-08] MEDS: ASCORBIC ACID 500 MG TAB PO SCH (09:45)
[2018-12-08] MEDS: FERROUS SULFATE 325 MG TABLET.DR PO SCH ×3 (09:45→22:17)
[2018-12-08] MEDS: FAMOTIDINE/PF 20 MG/2 ML VIAL IV SCH ×2 (09:45→22:17)
[2018-12-08] MEDS: ZINC SULFATE 220 CAPSULE PO SCH (09:45)
[2018-12-08] MEDS: CYANOCOBALAMIN (VITAMIN B-12) 1,000 MCG TABLET PO SCH (09:45)
[2018-12-08] MEDS: MIDODRINE HCL 5 MG TABLET PO SCH ×3 (09:45→22:18)
[2018-12-08] MEDS: OCTREOTIDE ACETATE 100 MCG/ML AMP SQ SCH ×3 (09:46→22:20)
[2018-12-08 11:00] VITALS: BP 117/82
[2018-12-08] MEDS: MEROPENEM 500 MG VIAL IVP SCH (15:09)
[2018-12-08 16:00] VITALS: BP 130/71
[2018-12-08 19:05] VITALS: BP 130/67
[2018-12-08] MEDS: INSULIN GLARGINE 100 UNITS/ML 10 ML VIAL SQ SCH (22:19)
[2018-12-08 23:24] VITALS: BP 127/77
[2018-12-09] VITALS (22 sets, daily range): BP systolic 95–138; BP diastolic 53–80
[2018-12-09] MEDS: INSULIN HUMULIN R 100 UNIT/ML 3ML SQ SCH ×3 (06:46→16:30)
[2018-12-09] MEDS ORDERED: PROPOFOL 10 MG/ML 20ML VIAL IV ONE (08:08)
[2018-12-09] MEDS: ASCORBIC ACID 500 MG TAB PO SCH (08:10)
[2018-12-09] MEDS: FAMOTIDINE/PF 20 MG/2 ML VIAL IV SCH (08:10)
[2018-12-09] MEDS: CYANOCOBALAMIN (VITAMIN B-12) 1,000 MCG TABLET PO SCH (08:10)
[2018-12-09] MEDS: CALCIUM ACETATE 667 MG CAPSULE PO SCH ×2 (08:10→14:00)
[2018-12-09] MEDS: FOLIC ACID 1 MG TABLET PO SCH (08:10)
[2018-12-09] MEDS: FERROUS SULFATE 325 MG TABLET.DR PO SCH ×2 (08:10→14:00)
[2018-12-09] MEDS: MIDODRINE HCL 5 MG TABLET PO SCH ×2 (08:10→14:00)
[2018-12-09] MEDS: ZINC SULFATE 220 CAPSULE PO SCH (08:11)
[2018-12-09] MEDS: OCTREOTIDE ACETATE 100 MCG/ML AMP SQ SCH ×2 (08:11→14:00)
[2018-12-09] MEDS: MEROPENEM 500 MG VIAL IVP SCH (14:45)
[2018-12-09] MEDS ORDERED: HYDR30CR79 RC (17:35)
[2018-12-09] MEDS ORDERED: HYDROCORTISONE 25 MG SUPPOSITORY PR SCH (21:00)
== END 2018-12-09 19:22 | disposition home or self-care (01) | DRG 441 ==
LOC: EDH 12:52 → EDHIP 16:27 → 4BH 18:11
PROVIDERS: ADMIT Internal Medicine; ATTEND Internal Medicine
PROC: 30233R1 Transfusion of Nonautologous Platelets into Peripheral Vein, Percutaneous Approach (ICD-10-PCS; principal; 2018-12-06)
PROC: 30233N1 Transfusion of Nonautologous Red Blood Cells into Peripheral Vein, Percutaneous Approach (ICD-10-PCS; 2018-12-06)
PROC: 0DJ08ZZ Inspection of Upper Intestinal Tract, Via Natural or Artificial Opening Endoscopic (ICD-10-PCS; 2018-12-07)
PROC: 0DJD8ZZ Inspection of Lower Intestinal Tract, Via Natural or Artificial Opening Endoscopic (ICD-10-PCS; 2018-12-09)
DX: K72.00 Acute and subacute hepatic failure without coma (principal); G93.41 Metabolic encephalopathy; K76.7 Hepatorenal syndrome; K29.01 Acute gastritis with bleeding; K80.00 Calculus of gallbladder with acute cholecystitis without obstruction; D62 Acute posthemorrhagic anemia; K63.3 Ulcer of intestine; N39.0 Urinary tract infection, site not specified; D61.818 Other pancytopenia; D68.9 Coagulation defect, unspecified; Z68.42 Body mass index [BMI] 45.0-49.9, adult; E87.2 Acidosis; K76.6 Portal hypertension; N17.9 Acute kidney failure, unspecified; D69.59 Other secondary thrombocytopenia; B96.20 Unspecified Escherichia coli [E. coli] as the cause of diseases classified elsewhere; B96.81 Helicobacter pylori [H. pylori] as the cause of diseases classified elsewhere; K63.5 Polyp of colon; K70.31 Alcoholic cirrhosis of liver with ascites; D73.1 Hypersplenism; E11.65 Type 2 diabetes mellitus with hyperglycemia; K21.0 Gastro-esophageal reflux disease with esophagitis; K64.1 Second degree hemorrhoids; E11.22 Type 2 diabetes mellitus with diabetic chronic kidney disease; E66.01 Morbid (severe) obesity due to excess calories; N18.9 Chronic kidney disease, unspecified; K31.89 Other diseases of stomach and duodenum; I12.9 Hypertensive chronic kidney disease with stage 1 through stage 4 chronic kidney disease, or unspecified chronic kidney disease; I25.10 Atherosclerotic heart disease of native coronary artery without angina pectoris; I25.2 Old myocardial infarction; Z87.11 Personal history of peptic ulcer disease; Z83.3 Family history of diabetes mellitus; Z82.49 Family history of ischemic heart disease and other diseases of the circulatory system
CPT/HCPCS: 36415; 36430; 43235; 45378; 70450; 71045; 76705; 78226; 80048; 80053; 80069; 80074; 80076; 80305; 81001; 81025; 82140; 82248; 82270; 82550; 82570; 82947; 82948; 83540; 83550; 83605; 83874; 84300; 84484; 85025; 85060; 85610; 85651; 85730; 86140; 86850; 86900; 86901; 86922; 87040; 87077; 87088; 87186; 93005; 99291; A9537; G0378; J0885; J1815; J1956; J2185; J2354; J2405; J2543; J2704; J3490; J7030; P9016; P9034